=== PATIENT | male | born 1960 | race Caucasian/White ===

== ENCOUNTER 2020-10-31 13:31 | Day surgery (SDC) | payer OTHER, SELFPAY ==
[2020-10-31] VITALS (18 sets, daily range): BP systolic 109–130; BP diastolic 73–86; PULSE 71–98; RESP 8–16; TEMP 36.9–37.3; O2SAT 90–97; BMI 29.0
--- NOTE | 2020-10-31 | PATH_ITS ---
[facility] Accession Number: [id number] . 01 Material submitted: . cecum - CECAL POLYP . 02 Diagnosis: Cecum, Polyp, Biopsy: Tubular adenoma. MRV 11/04/2020 1429 Local . 02 Electronically signed: . Ramona Gomez MD, Pathologist NPI- [id number] . 01 Gross description: . CECAL POLYP: Received in formalin is 1 fragment(s) of lilly, soft tissue measuring 0.8 x 0.3 x 0.3 cm submitted entirely in 1 cassette(s) /QBJ 11/01/2020 0654 Local . 02 Pathologist provided ICD-10: D12.0 . 02 CPT . 975048 Performed at: 01 [facility] [address] [id number] MD Arsenio Sanders MD Phone: [phone] Performed at: 02 [facility] [address] [place], [place] [id number] MD Ramona Gomez MD Phone: [phone]
[2020-10-31] MEDS: LACTATED RINGERS 1,000 ML 200 ML IV ×2 (13:59→15:54)
--- NOTE | 2020-10-31 14:52 | P.HP_ITS ---
History of Present Illness History of Present Illness Date Patient Seen: 10/31/20 Time Patient Seen: 14:52 Chief complaint: SDC Narrative: The patient is a gentleman who has recently been having rectal bleeding with bowel movements. He is brought in for evaluation. The blood is bright red. Patient History Family & Social History Family History Father Loud snoring Depression Family/Other Loud snoring Social History: household members spouse Tobacco & Substance use: Smoking Status Never smoker alcohol intake never Substance Use Type does not use Meds Home Medications and Allergies Home Medications Medication Instructions Recorded Confirmed Type venlafaxine 75 mg capsule,extended 75 mg PO QAM #90 cap 06/03/20 10/31/20 Rx release 24 hr Allergies Allergy/AdvReac Type Severity Reaction Status Date / Time propoxyphene [From Darvon] Allergy Hives Verified 10/31/20 13:44 Review of Systems Review of Systems ROS: Yes All systems reviewed with the patient and are negative except as otherwise documented Exam Vital Signs (past 8 hours): - 10/31/20 13:50 Temperature 98.5 F Pulse Rate 83 Respiratory Rate 16 Blood Pressure 115/74 Pulse Oximetry 96 Oxygen Delivery Method Room Air Narrative Exam Narrative: Pleasant cooperative patient no apparent distress. Lungs are clear to auscultation. No rales or rhonchi. Heart regular rate and rhythm no murmur gallop. Abdomen is soft nontender without mass. No obvious hernias. Patient is alert and oriented x3. Assessment & Plan Assessment & Plan narrative: The patient for a screening colonoscopy. I have discussed the procedure with them. Risks of bleeding, perforation which would necessitate major operation, failure to find remove all lesions, the potential tattoo were all discussed. All questions were answered. They wished to pr oceed.
--- NOTE | 2020-10-31 14:53 | PM.PREOP ---
Pre-operative Note COVID-19 COVID-19 status: Negative Result date/Date tested (Pos, Neg/Pending): 10/30/20 Interval Note History & Physical reviewed/Exam performed by Physician: Yes Changes to H&P: No ASA Class (for procedural sedation): I
[2020-10-31] MEDS: fentaNYL 250 MCG/5 ML INJ IV (15:33)
[2020-10-31] MEDS: MIDAZOLAM 5 MG/5 ML VIAL IV (15:33)
[2020-10-31] MEDS: LIDOCAINE JELLY 2% 5 ML 1 APPLIC TOP (15:38)
--- NOTE | 2020-10-31 15:41 | PM.OP.ENDO ---
Operative Date/Time/Diagnoses Date of procedure: 10/31/20 Time of procedure: 15:41 Pre-op diagnosis: Rectal bleeding Post-op diagnosis: same (Cecal polyp. A few scattered diverticulum of the sigmoid colon. Internal hemorrhoids.) Procedure & Clinicians Study performed: Colonoscopy with hot snare polypectomy. Anoscopy with 2 column hemorrhoid banding. Same procedure as scheduled: Yes Indications: Determine cause of rectal bleeding. Treat hemorrhoids of present. Surgeon: Kamlesh Tyler Procedure Notes SCOAP/Timeout: Performed Procedure in detail: The patient was placed in the left lateral decubitus position and underwent IV sedation directed by the surgeon consisting of fentanyl and Versed. Digital exam was remarkable for an increased sphincter tone and a fairly flat prostate. No palpable masses.. The scope was inserted and advanced through the rectum into the sigmoid, descending, transverse, and ascending colon. Pressure was applied and we made our way into the cecum.. The cecum was reached identified by the ileocecal valve and the appendiceal opening. The ileocecal valve was successfully cannulated. The terminal ileum was normal in appearance. There was a polyp in the cecum which probably approached a cm and but at its base which I snared with a hot snare. It appeared to be completely removed. The scope was gradually brought out. No other Polyps were found. The scope ultimately was retroflexed in the rectum. The appearance was remarkable for internal hemorrhoids without ulceration.. The scope was removed and the patient tolerated the procedure well. The prep was excellent. Anoscope was inserted and circumferential exam undertaken. Patient had a large hemorrhoid in the right anterior lateral and left lateral positions. Both of these were banded. Patient tolerated the procedure well. Of note, patient had episodic breathing which was highly suggestive of sleep apnea. Scope withdrawal time: 9 minutes Sedation minutes: 37 Findings: diverticulosis (Occasional sigmoid), internal hemorrhoids (Two columns banded) and polyp (One cecal polyp) Specimen(s): other (Polyp) Post-procedure Recommendations: Colonscopy in 5 years Follow up: weeks (Can follow-up by phone) Disposition: PACU
== END 2020-10-31 17:07 | disposition home or self-care (01) ==
PROVIDERS: PCP Family Medicine; Referring Provider Family Medicine; Visit Provider Specialist
PROC: 0DJD8ZZ Inspection of Lower Intestinal Tract, Via Natural or Artificial Opening Endoscopic (ICD-10-PCS; CPT 45378; principal; 2020-10-31 14:30)
DX: K62.5 Hemorrhage of anus and rectum (principal); K57.30 Diverticulosis of large intestine without perforation or abscess without bleeding; K64.8 Other hemorrhoids; D12.0 Benign neoplasm of cecum
CPT/HCPCS: 45385; 46221; 99152; 99153; J2250; J3010

== ENCOUNTER 2021-10-04 23:19 | Emergency (ER) | payer OTHER, SELFPAY ==
[2021-10-04 23:28] VITALS: BP 143/79; PULSE 87; RESP 15; TEMP 36.6; O2SAT 95; BMI 31.1
--- NOTE | 2021-10-05 00:03 | ED.ANIMALBIT ---
HPI - Animal Bite General Chief Complaint: Animal Bite Stated Complaint: Rt. arm bat bite Time Seen by Provider: 10/04/21 23:20 Source: patient Mode of arrival: Ambulatory History of Present Illness HPI narrative: Otherwise healthy 61-year-old gentleman was in his garage when he noticed a painful bite sensation to the right upper arm looked down and found a bat physically attached to his right upper arm. The a bat was dislodged and he comes in for rabies prophylaxis. The wound was cleaned well at home. Notes some minor tenderness at the site of the bite and no other issues at this time. No fevers, chills, paresthesias or headaches. Related Data Previous Rx's Medication Instructions Recorded venlafaxine 75 mg capsule,extended 75 mg PO QAM #90 cap 06/03/21 release 24 hr Allergies Allergy/AdvReac Type Severity Reaction Status Date / Time propoxyphene [From Darvon] Allergy Hives Verified 10/04/21 23:36 Review of Systems Review of Systems Narrative: Remainder of complete review of systems is otherwise unremarkable except for that included in the HPI. Patient History Medical History Alcohol dependence in sustained full remission Depression (emotion) Fatigue due to sleep pattern disturbance History of rectal bleeding Obstructive sleep apnea, adult (~11/2020) Snoring (~2018) Family History Father Loud snoring Depression Family/Other Loud snoring Social History marital status: (to Leah, lives in [place]) number of children: 3 household members: spouse lives independently: Yes caregiver/support person: No housing: house pets and animals: Yes (sommer) education level: college (medical school) occupational status: employed (primary care physician) current occupational exposures/hazards: Yes (close contact with ill persons) norma/restoration: Sikhism Smoking Status: Never smoker Smokeless tobacco user: chewing tobacco (Quit 1994) alcohol intake: former (abstinent since 2004) substance use type: does not use Smoking Status: Never smoker Substance Use Type: does not use Exam Initial Vital Signs Initial Vital Signs: Vital Signs Temperature 97.8 F 10/04/21 23:28 Pulse Rate 87 10/04/21 23:28 Respiratory Rate 15 10/04/21 23:28 Blood Pressure 143/79 H 10/04/21 23:28 Pulse Oximetry 95 10/04/21 23:28 General: Alert appropriate in no acute distress Respiratory: Able to speak in full sentences, no obvious respiratory distress Skin: No obvious rashes, what appears to be 2 small puncture wounds on the right deltoid area consistent with history and bat bite Neurologic: Grossly intact no obvious asymmetries or abnormalities Psych: appropriate insight and affect, cooperative Course Orders Ordered: Discontinued Medications Rabies Immune Globulin (Rabies Immune Globulin 300 Unit/Ml 1ml Vial) 2,087 unit 20 unit/kg (2087 unit) IM NOW ONE Stop: 10/04/21 23:36 Rabies Vaccine (Rabies Vaccine (Rabavert) 2.5 Units Syringe) 2.5 units IM .ONCE ONE Stop: 10/04/21 23:36 Vital Signs Vital signs: Vital Signs - 8 hr 10/04/21 23:28 Temperature 97.8 F Pulse Rate 87 Respiratory Rate 15 Blood Pressure 143/79 H Pulse Oximetry 95 MDM - Animal Bite MDM Narrative Medical decision making narrative: 61-year-old gentleman with obvious bat bite. He has inoculated with 20 per kilos of rabies immune globulin and given days 0 rabies vaccine. He will need vaccine on day 3, 7 and 14. Incident is reported to the Health Department. Patient is stable post injection safe for home discharge Discharge Plan Departure Patient Disposition: Home Clinical Impression: Rabies contact Instructions: DI for Rabies Vaccine Activity Restrictions/Additional Instructions: Thank you for coming in tonight I am sorry that vicious vampire bat got a hold of you just prior to spring and her trip to [place]. You were given immune globulin in the emergency department around the bite wound. Your given your day 0 vaccine, you will need additional doses of rabies vaccine on day 3, 7 and 14. Emmy, that inpatient pharmacist asked that you give them a call on Wednesday and they will get seen doses per day 3 and day 7 [facility] for you to administer appropriately. If you have worsening symptoms new findings or other concerns please feel free to come back. I hope you have a great trip to [place] Prescriptions: No Action venlafaxine 75 mg capsule,extended release 24hr 75 mg PO QAM Qty: 90 1RF Referrals: Trinity Blevins MD [Primary Care Provider] -
[2021-10-05] MEDS: RABIES VACCINE (RABAVERT) 2.5 UNITS SYRINGE IM (00:07)
[2021-10-05] MEDS: RABIES IMMUNE GLOBULIN 300 UNIT/ML 1mL VIAL 2087 UNIT IM (00:16)
[2021-10-05] MEDS: IBUPROFEN 400 MG TABLET PO (00:25)
[2021-10-05] MEDS: ACETAMINOPHEN 325 MG TABLET PO (00:26)
== END 2021-10-05 01:31 | disposition home or self-care (01) ==
PROVIDERS: Emergency Provider Emergency Medicine; PCP Family Medicine
DX: S41.151A Open bite of right upper arm, initial encounter (principal); Z20.3 Contact with and (suspected) exposure to rabies; Z29.14 Encounter for prophylactic rabies immune globulin; W55.81XA Bitten by other mammals, initial encounter; Y92.89 Other specified places as the place of occurrence of the external cause; Z87.891 Personal history of nicotine dependence; Z23 Encounter for immunization
CPT/HCPCS: 90375; 90471; 90675; 96372; 99283

== ENCOUNTER → 2021-10-28 17:14 | Outpatient (CLI) | payer OTHER, SELFPAY ==
--- NOTE | 2021-10-28 | DI.RAD.S_ITS ---
PROCEDURE: XR LUMBAR SPINE 2-3V INDICATIONS: pain TECHNIQUE: 3 views of the lumbar spine were acquired. COMPARISON: None. FINDINGS: Bones: 5 [id number]-cyszqiv vertebrae are present. There is multilevel trace retrolisthesis throughout the lumbar spine. Innw-su-hjwaugiw disc space narrowing is also present most severe at L4-5. Small anterior non bridging osteophytes are present multiple levels. Multilevel moderate to severe foraminal narrowing is present from L3-4 through L5-S1. No vertebral body compression fractures. No suspicious bony lesions. Soft tissues: Overlying bowel gas pattern is nonobstructive. Moderate colonic stool is present. No suspicious soft tissue calcifications. IMPRESSION: Multilevel degenerative changes as above, most severe at L4-5 and L5-S1. Dictated by: Vivian Banks M.D. on 10/29/2021 at 10:35 Approved by: Vivian Banks M.D. on 10/29/2021 at 10:36
--- NOTE | 2021-10-28 | DI.RAD.S_ITS ---
PROCEDURE: XR FINGER LT MIN 2V INDICATIONS: pain TECHNIQUE: AP hand, 2 views of the 1st finger(s) acquired. COMPARISON: None. FINDINGS: Bones: No fractures or dislocations. No suspicious bony lesions. Minimal scattered IP degenerative narrowing. Areas of subchondral lucency are present at the DIP and PIP joints. Soft tissues: No suspicious soft tissue calcifications. IMPRESSION: No visualized acute fracture or dislocation. However, if clinical concern and/or pain persist, short interval imaging followup in 7-10 days is recommended, as occult injury cannot be definitively excluded. Subchondral lucencies at the PIP and DIP joints suggestive of cysts. However, in appropriate clinical and laboratory circumstances, erosions cannot be excluded. Dictated by: Vivian Banks M.D. on 10/29/2021 at 10:32 Approved by: Vivian Banks M.D. on 10/29/2021 at 10:35
== END ==
PROVIDERS: PCP Family Medicine; Referring Provider Family Medicine; Visit Provider Family Medicine
DX: M47.816 Spondylosis without myelopathy or radiculopathy, lumbar region (principal); M47.817 Spondylosis without myelopathy or radiculopathy, lumbosacral region; M54.50 Low back pain, unspecified; M79.645 Pain in left finger(s)
CPT/HCPCS: 72100; 73140

== ENCOUNTER 2022-03-26 12:27 | Outpatient (CLI) | payer OTHER, SELFPAY | END 2022-04-01 10:51 | disposition home or self-care (01) | LOC: PHYS 12:27 | PROVIDERS: Family Provider Family Medicine; PCP Family Medicine; Referring Provider Family Medicine; Visit Provider Family Medicine | DX: M54.16 Radiculopathy, lumbar region (principal) | CPT/HCPCS: 95886; 95910 ==

== ENCOUNTER → 2022-06-23 17:21 | Outpatient (CLI) | payer OTHER, SELFPAY ==
--- NOTE | 2022-06-23 17:26 | DI.RAD.S_ITS ---
PROCEDURE: XR HAND RT 2V INDICATIONS: Right 5th digit swelling TECHNIQUE: 2 views of the hand(s) acquired. COMPARISON: None. FINDINGS: Bones: There is an ill-defined nondisplaced lucency at the base of the distal 5th phalanx extending to the articular surface. It is seen only in one view. Carpal bones are normally aligned. No suspicious bony lesions. Soft tissues: No suspicious soft tissue calcifications. IMPRESSION: Nondisplaced proximal 5th phalanx lucency seen only on one view. Fracture cannot be definitively excluded. Recommend correlation point tenderness and follow-up imaging in 7-10 days for further evaluation. Dictated by: Vivian Banks M.D. on 06/24/2022 at 16:59 Approved by: Vivian Banks M.D. on 06/24/2022 at 17:00
--- NOTE | 2022-06-23 17:26 | DI.MRI.S_ITS ---
PROCEDURE: MR LUMBAR SPINE WO CON INDICATIONS: Right L4 radiculopathy TECHNIQUE: Noncontrast sagittal T1 spin echo and T2 fast echo, sagittal STIR, and T2 fast spin echo through the lumbar spine. In cases with scoliosis, additional coronal T2 fast spin echo may be performed. COMPARISON: [facility], CR, XR LUMBAR SPINE 2-3V, 10/28/2021, 17:18. FINDINGS: Image quality: Diagnostic. Alignment and Curvature: There is minimal retrolisthesis seen at L1-L2, with minimal to mild retrolisthesis seen at L2-L3, L3-L4, and L4-L5. Minimal retrolisthesis is seen at L5-S1. Bone Marrow: Marrow is of normal overall signal. No acute vertebral body compression fractures. Spinal Cord: Conus medullaris terminates at the T12-L1 level. Visualized cord demonstrates normal signal and size. Paraspinous Soft Tissues: No paravertebral masses. T12-L1: Normal appearance. L1-L2: Mild loss of disc height is seen. Loss of disc signal is seen. Mild to moderate disc bulge is seen, with a mild central disc protrusion. Moderate bilateral neural foraminal narrowing is seen. Mild to moderate central canal narrowing is seen. L2-L3: Moderate loss of disc height is seen. Loss of disc signal is seen. At least moderate disc bulge is seen. Mild facet joint hypertrophy is seen. There is at least moderate bilateral neural foraminal narrowing seen, left worse than right. There is a degree of compression seen upon the exiting nerve roots. Moderate central canal narrowing is seen. L3-L4: The disc height is well-preserved. Loss of disc signal is seen at this level. Moderate generalized disc bulge is seen. There is a focal annular fissure seen posteriorly. Moderate facet joint hypertrophy is seen. There is moderate right-sided and at least moderate left-sided neural foraminal narrowing. There is a mild degree of compression seen upon the exiting left L3 nerve root. Mild central canal narrowing is seen. L4-L5: The disc height is well-preserved. Loss of disc signal is seen at this level. There is a remote Schmorl's node seen involving the inferior endplate L4. Moderate generalized disc bulge is seen. Moderate facet joint hypertrophy is seen. Fluid is seen within the facet joints themselves. There is moderate to severe bilateral neural foraminal narrowing seen, with an associated a degree of compression seen upon the exiting nerve roots. Moderate to severe central canal narrowing is also seen at this level. L5-S1: The disc height and disc signal are relatively well preserved. Mild disc bulge is seen, which is eccentric to the right. There is a focal annular fissure seen posteriorly. Moderate facet joint hypertrophy is seen. There is moderate to severe bilateral neural foraminal narrowing seen, with an associated a degree of compression seen upon the exiting nerve roots. Mild central canal narrowing is seen. IMPRESSION: Multiple levels of lumbar spine degenerative change are seen, which are worst inferiorly. Several sites of significant neural foraminal narrowing can be seen, with associated exiting nerve root compression. Dictated by: Cb Ortiz M.D. on 06/23/2022 at 17:07 Approved by: Cb Ortiz M.D. on 06/23/2022 at 17:11
== END ==
PROVIDERS: Family Provider Family Medicine; PCP Family Medicine; Referring Provider Physical Medicine & Rehabilitation; Visit Provider Physical Medicine & Rehabilitation
DX: M47.26 Other spondylosis with radiculopathy, lumbar region (principal); M47.27 Other spondylosis with radiculopathy, lumbosacral region; M48.061 Spinal stenosis, lumbar region without neurogenic claudication; M48.07 Spinal stenosis, lumbosacral region; M65.30 Trigger finger, unspecified finger
CPT/HCPCS: 72148; 73120

== ENCOUNTER 2022-07-02 07:32 | Outpatient (CLI) | payer OTHER, SELFPAY ==
[2022-07-02] VITALS (9 sets, daily range): BP systolic 94–120; BP diastolic 55–80; PULSE 61–71; RESP 14–20; TEMP 36.2; O2SAT 94–98
--- NOTE | 2022-07-02 07:36 | DI.RAD.S_ITS ---
PROCEDURE: PAIN L/S TRANSFORAMINAL INJECT INDICATIONS: SPONDYLOSIS COMPARISON: [facility], MR, MR LUMBAR SPINE WO CON, 06/23/2022, 17:31. FINDINGS: Fluoroscopic spot filming was performed to verify placement of a spinal needle at the L4-L5 level, as labeled on the films. Appropriate location of the needle tip was confirmed by injection of iodinated contrast. IMPRESSION: Intraprocedural examination within normal limits. Dictated by: Cb Ortiz M.D. on 07/02/2022 at 10:52 Approved by: Cb Ortiz M.D. on 07/02/2022 at 10:52
[2022-07-02] MEDS: MIDAZOLAM 2 MG/2 ML VIAL 4 MG IV (08:25)
[2022-07-02] MEDS: IOPAMIDOL 15 ML VIAL 3 ML INJ (08:26)
[2022-07-02] MEDS: BUPIVACAINE 0.25% (PF) VIAL 5 ML SUBCUT (08:26)
[2022-07-02] MEDS: DEXAMETHASONE 10 MG/ML VIAL 20 MG INJ (08:27)
--- NOTE | 2022-07-02 08:38 | P.PCN_ITS ---
Date/Time/Diagnoses Date of procedure: 07/02/22 Time of procedure: 08:38 Pre-procedure diagnosis: 1. FORAMINAL STENOSIS WITH LE SYMPTOMS Post-procedure diagnosis: same Procedure Notes Procedure: 1. FLUOROSCOPICALLY GUIDED CONTRAST CONTROLLED TRANSFORAMINAL EPIDURAL STEROID INJECTION - RIGHT L4/5 TFESI Indications: Dillon is referred by Dr. Blevins for treatment of Foraminal Stenosis with Right LE Symptoms Physician: Dillon Scott Total Fluoroscopy time (seconds): 13 Total sedation minutes: 17 Complications: none Procedure in detail & Post-procedure care: FINDINGS Foraminal Nerve Root Compression secondary to disc disease and facet hypertrophy DESCRIPTION OF PROCEDURE Following review of allergy and review of potential side effects and complications, including, but not necessarily limited to, infection, allergic reaction, local tissue breakdown, stroke, temporary or permanent nerve injury, paralysis, and possible , the patient indicated that the patient understood and agreed to proceed. An informed consent document was signed by the patient, witnessed by a nurse, and placed in the patient's chart. Additionally, other treatment options including medications, modalities, and physical therapy were reviewed with the patient. After review of previous anaesthesic history and IV conscious sedation the patient was deemed safe to proceed with today?s procedure with IV conscious sedation as ASA class II designation. Safety time-out was performed to confirm patient ID, procedure to be performed and site of procedure. IV sedation was accomplished with a combination of 4mg of Versed was administered by the RN after DO order, titrated to patient comfort during the course of the procedure while the patient remained responsive to all verbal commands In the prone position following sterile prep and drape of the lumbar region, the right L4/5 posterior neuroforamen was identified fluoroscopically. The skin was anesthetized via a 25-gauge 1.5-inch needle with 1% lidocaine solution. At this point, a 25-gauge 3.5-inch spinal needle was atraumatically introduced and advanced under fluoroscopic guidance through the posterior right L4/5 neuroforamen to approximately the anterior aspect of the canal. Depth was confirmed on lateral view. Following negative aspiration, injection of approximately 1.5cc of Isovue 200 under live fluoroscopy in the AP view confirmed excellent flow along the nerve root, into the epidural space without vascular or intrathecal uptake observed Radiological data, including multiple fluoroscopic views of the lumbosacral sp ine, reveal a spinal needle at the right L4/5 posterior neuroforamen. Subsequent views show flow of contrast material flowing superiorly and inferiorly along the nerve root confirming epidural flow. Subsequently, a test dose of 1.5 cc of 1% lidocaine solution was administered and patient was observed for two minutes for signs or symptoms of complications, including abdominal pain, shortness of breath, bilateral upper or lower extremity weakness, nausea and vomiting, prior to steroid injection. At this point, a total of 3cc or 20mg of dexamethasone and 80 depo medrol was injected without incident. The procedure tolerated the procedure well without signs or symptoms of complications prior to transfer to the recovery area continued monitoring without incident. The patient was then transferred to the recovery area where they were observed for an appropriate time after the injection. The patient reported a VAS score of 7 prior to the procedure and a post- procedure VAS of 0. POST OP INSTRUCTIONS The patient was provided a Pain Log to continue to record their response to the target-specific procedure prior to follow-up visit with their referring phys ician. Additionally, specific post-injection care instructions and a contact number to our office were provided if concerns arise regarding possible complications associated with the procedure are suspected.
--- NOTE | 2022-07-02 09:15 | PC.NURSE ---
Slight weakness to RLE and instability at 0845. Will monitor longer until resolved. 0910 patient awake, A/O, steady gait at baseline mobility. Transferred to without difficulty. Ok to discharge.
== END 2022-07-02 09:17 | disposition home or self-care (01) ==
LOC: RAD 07:33
PROVIDERS: Family Provider Family Medicine; PCP Family Medicine; Referring Provider Physical Medicine & Rehabilitation; Visit Provider Physical Medicine & Rehabilitation
DX: M48.061 Spinal stenosis, lumbar region without neurogenic claudication (principal); M51.16 Intervertebral disc disorders with radiculopathy, lumbar region
CPT/HCPCS: 64483; 99152; J0702; J1030; J1040; J1100; J2250; J2920; J3490